=== PATIENT | male | born 1980 | race Two or more races ===

== ENCOUNTER 2021-01-17 20:57 | Inpatient (IN) | payer MEDICAID, OTHER ==
[~2021-01-17] VITALS: Ht 182.9 cm; Wt 101.9 kg
[2021-01-17] MEDS ORDERED: LIDOCAINE 2%,20 ML JEL.PF.APP MM ONE (21:16)
--- NOTE | 2021-01-17 21:53 | NUR ---
Pt to ER with severe lower abd pain. Pt used urinal and had small amounts of bloody urine. Pt states he has difficulty urinating for 3 days. Pt in room, physician at bedside. 18fr 3way suero cath placed with sterile technique. Hand washing performed. Urojet used. Suero placed without difficulty. Pt with immediate relief. 1200ml of urine drained. Suero clamped at 800mL, for 5 mins, then the rest drained. Secure device to leg. Urine bloody. Labs sent per orders. Pt to CT. Warm blanket given. Pt appears much more comfortable now with no pain. Will monitor.
[2021-01-17 21:54] LABS: BASOPHILS % (AUTO) 1 % (0-1); EOSINOPHILS % (AUTO) 4 % (1-7); LYMPHOCYTES % (AUTO) 22 % (22-44); MEAN CORPUSCULAR HEMOGLOBIN 27.1 pg (27.5-34.5); MEAN CORPUSCULAR HGB CONC 33.9 g/dL (33.2-36.2); MEAN PLATELET VOLUME 6.5 fL (7.4-10.4); MONOCYTES % (AUTO) 8 % (2-9); NEUTROPHILS % (AUTO) 65 % (42-75); PLATELET COUNT 353 x10^3/uL (130-400); RED BLOOD COUNT 4.66 x10^6/uL (4.38-5.82); RED CELL DISTRIBUTION WIDTH 15.3 % (9.4-14.8)
[2021-01-17 21:55] LABS: MD NO
[2021-01-17 22:05] LABS: ALANINE AMINOTRANSFERASE 16 U/L (12-78); ALBUMIN 3.5 g/dL (3.4-5.0); ANION GAP 10 mmol/L (5-15); CALCIUM 8.5 mg/dL (8.5-10.1); CHLORIDE 105 mmol/L (98-107); CREATININE 1.56 mg/dL (0.7-1.3)
[2021-01-17 22:08] LABS: ALKALINE PHOSPHATASE 67 U/L (45-117); BILIRUBIN,TOTAL 0.3 mg/dL (0.2-1.0); TOTAL PROTEIN 8.3 g/dL (6.4-8.2)
[2021-01-17 22:26] LABS: MICROSCOPIC INDICATED
[2021-01-17] MEDS ORDERED: CEFTRIAXONE PMX 1GM/50ML 50 ML IV ONE (23:30)
[2021-01-17] MEDS ORDERED: ONDANSETRON 2MG/ML, 2ML IVPush PRN (23:30)
[2021-01-17] MEDS ORDERED: MORPHINE SULFATE 4 MG/ML, 1ML IVPush PRN (23:30)
[2021-01-17] MEDS ORDERED: CEFTRIAXONE PMX 1GM/50ML 50 ML ONE (23:39)
[2021-01-18] VITALS (7 sets, daily range): BP systolic 138–166; BP diastolic 91–116
--- NOTE | 2021-01-18 00:08 | NUR ---
Pt with 2000ml of urine output. Urine clearing, pink tinged, no clots noted. Pt denies the need for pain medications at this time. IV placed and abx infusing. Pt denies any needs at this time will monitor.
[2021-01-18] MEDS ORDERED: DOCUSATE 100 MG CAPSULE PO PRN (01:00)
[2021-01-18] MEDS ORDERED: LACTATED RINGERS 1,000 ML IV SCH (01:00)
[2021-01-18] MEDS ORDERED: MELATONIN 5 MG TABLET PO PRN (01:00)
[2021-01-18] MEDS ORDERED: hydrALAzine 20 MG/ML, 1ML IVPush PRN (01:00)
[2021-01-18] MEDS: OXYcodone IR 5MG TABLET PO PRN ×3 (02:20→19:37)
[2021-01-18 05:33] LABS: CHLORIDE 110 mmol/L (98-107)
[2021-01-18 05:35] LABS: BASOPHILS % (AUTO) 1 % (0-1); EOSINOPHILS % (AUTO) 3 % (1-7); LYMPHOCYTES % (AUTO) 23 % (22-44); MEAN CORPUSCULAR HEMOGLOBIN 27.4 pg (27.5-34.5); MEAN CORPUSCULAR HGB CONC 33.9 g/dL (33.2-36.2); MEAN PLATELET VOLUME 6.9 fL (7.4-10.4); MONOCYTES % (AUTO) 10 % (2-9); NEUTROPHILS % (AUTO) 63 % (42-75); PLATELET COUNT 324 x10^3/uL (130-400); RED BLOOD COUNT 4.71 x10^6/uL (4.38-5.82); RED CELL DISTRIBUTION WIDTH 14.9 % (9.4-14.8)
[2021-01-18 05:36] LABS: MD NO
[2021-01-18 05:38] LABS: ANION GAP 6 mmol/L (5-15); CREATININE 1.48 mg/dL (0.7-1.3)
[2021-01-18] MEDS: SODIUM CHLORIDE 0.9% 1,000 ML IV SCH (12:36)
[2021-01-18] MEDS ORDERED: OMNIPAQUE 350 MG/ML, 50 ML BOTTLE ONE (13:59)
[2021-01-18] MEDS ORDERED: PROPOFOL 10 MG/ML, 20ML ONE (15:34)
[2021-01-18] MEDS ORDERED: CEFAZOLIN 1,000 MG ONE (15:34)
[2021-01-18] MEDS ORDERED: ONDANSETRON 2MG/ML, 2ML ONE (15:34)
[2021-01-18] MEDS ORDERED: SUCCINYLCHOLINE 20 MG/ML, 10ML ONE (15:34)
[2021-01-18] MEDS ORDERED: SUGAMMADEX 200 MG/2 ML IVPush ONE (15:34)
[2021-01-18] MEDS ORDERED: ROCURONIUM 10 MG/ML,10ML ONE (15:34)
[2021-01-18] MEDS ORDERED: MIDAZOLAM 1 MG/ML, 2ML ONE (15:36)
[2021-01-18] MEDS ORDERED: MEPERIDINE/PF 25MG/0.5ML IVPush PRN (16:30)
[2021-01-18] MEDS ORDERED: ALBUTEROL HFA 90 MCG/SPRAY INH PRN (16:30)
[2021-01-18] MEDS ORDERED: hydrALAzine 20 MG/ML, 1ML IV PRN (16:30)
[2021-01-18] MEDS ORDERED: OXYcodone 5 MG/5 ML ORAL.SOL UDC PO PRN (16:30)
[2021-01-18] MEDS ORDERED: FENTANYL PF 100 MCG/2ML IV PRN (16:30)
[2021-01-18] MEDS ORDERED: KETOROLAC 30 MG/1 ML IV PRN (16:30)
[2021-01-18] MEDS ORDERED: DIAZEPAM 5 MG/ML, 2ML IV PRN ×2 (16:30)
[2021-01-18] MEDS ORDERED: ALBUTEROL SULFATE 2.5 MG/3 ML NPPB PRN (16:30)
[2021-01-18] MEDS ORDERED: ONDANSETRON 2MG/ML, 2ML IVPush PRN (16:30)
[2021-01-18] MEDS ORDERED: PROMETHAZINE 25 MG/ML, 1ML IV PRN (16:30)
[2021-01-18] MEDS ORDERED: LABETALOL 5MG/ML, 20ML IV PRN (16:30)
[2021-01-18] MEDS ORDERED: FENTANYL PF 100 MCG/2ML ONE (16:45)
[2021-01-18] MEDS ORDERED: OXYcodone 5 MG/5 ML ORAL.SOL UDC ONE (17:08)
[2021-01-18] MEDS ORDERED: HYDROmorphone 1 MG/ML, 1ML INJ ONE (17:20)
[2021-01-18] MEDS: HYDROmorphone 1 MG/ML, 1ML INJ IV PRN ×2 (17:23→17:32)
[2021-01-18] MEDS: LABETALOL 5MG/ML, 20ML IVPush PRN (21:47)
[2021-01-18] MEDS ORDERED: CEFTRIAXONE PMX 1GM/50ML 50 ML IV SCH (23:00)
[2021-01-19] VITALS (7 sets, daily range): BP systolic 121–171; BP diastolic 76–111
[2021-01-19] MEDS ORDERED: POTASSIUM CHLORIDE 40 MEQ in LACTATED RINGERS 1,000 ML IV SCH (01:00)
[2021-01-19] MEDS: SODIUM CHLORIDE 0.9% 1,000 ML IV SCH ×2 (04:45→15:48)
[2021-01-19 08:00] LABS: ANION GAP 8 mmol/L (5-15); CALCIUM 8.2 mg/dL (8.5-10.1); CHLORIDE 106 mmol/L (98-107); CREATININE 1.55 mg/dL (0.7-1.3)
[2021-01-19] MEDS: OXYcodone IR 5MG TABLET PO PRN (08:39)
[2021-01-19] MEDS ORDERED: OMNIPAQUE 350 MG/ML, 150 ML BOTTLE ONE (09:45)
[2021-01-19] MEDS: LABETALOL 5MG/ML, 20ML IVPush PRN (20:42)
[2021-01-20] VITALS (8 sets, daily range): BP systolic 138–159; BP diastolic 88–107
[2021-01-20] MEDS: SODIUM CHLORIDE 0.9% 1,000 ML IV SCH ×3 (02:41→21:35)
[2021-01-20] MEDS: OXYcodone IR 5MG TABLET PO PRN ×2 (07:29→16:55)
[2021-01-20] MEDS: LABETALOL 5MG/ML, 20ML IVPush PRN (07:29)
[2021-01-20 08:02] LABS: ANION GAP 9 mmol/L (5-15); CALCIUM 9.1 mg/dL (8.5-10.1); CHLORIDE 108 mmol/L (98-107); CREATININE 1.42 mg/dL (0.7-1.3)
[2021-01-20] MEDS: AMLODIPINE 5 MG TABLET PO SCH (08:18)
[2021-01-21 00:10] VITALS: BP 132/75
[2021-01-21 07:25] VITALS: BP 146/90
[2021-01-21] MEDS: AMLODIPINE 5 MG TABLET PO SCH (09:46)
[2021-01-21] MEDS: SODIUM CHLORIDE 0.9% 1,000 ML IV SCH (09:47)
[2021-01-21] MEDS: OXYcodone IR 5MG TABLET PO PRN (09:56)
[2021-01-21 13:31] VITALS: BP 149/90
[2021-01-21 18:44] VITALS: BP 156/91
[2021-01-22 01:17] VITALS: BP 123/84
[2021-01-22 05:15] LABS: ANION GAP 9 mmol/L (5-15); CHLORIDE 106 mmol/L (98-107); CREATININE 1.43 mg/dL (0.7-1.3)
[2021-01-22 07:05] VITALS: BP 138/96
[2021-01-22] MEDS: AMLODIPINE 5 MG TABLET PO SCH (08:46)
[2021-01-22 13:41] VITALS: BP 152/85
[2021-01-22 19:39] VITALS: BP 143/84
[2021-01-23 00:48] VITALS: BP 128/82
[2021-01-23 04:58] LABS: BASOPHILS % (AUTO) 1 % (0-1); EOSINOPHILS % (AUTO) 9 % (1-7); LYMPHOCYTES % (AUTO) 23 % (22-44); MEAN CORPUSCULAR HGB CONC 33.7 g/dL (33.2-36.2); MEAN PLATELET VOLUME 6.4 fL (7.4-10.4); MONOCYTES % (AUTO) 7 % (2-9); NEUTROPHILS % (AUTO) 59 % (42-75); PLATELET COUNT 363 x10^3/uL (130-400); RED BLOOD COUNT 4.97 x10^6/uL (4.38-5.82); RED CELL DISTRIBUTION WIDTH 15.3 % (9.4-14.8)
[2021-01-23 05:02] LABS: ANION GAP 8 mmol/L (5-15); CALCIUM 8.9 mg/dL (8.5-10.1); CHLORIDE 107 mmol/L (98-107); CREATININE 1.59 mg/dL (0.7-1.3)
[2021-01-23 05:06] LABS: MD NO
[2021-01-23] MEDS: AMLODIPINE 5 MG TABLET PO SCH (08:28)
[2021-01-23 08:36] VITALS: BP 140/96
[2021-01-23 12:38] VITALS: BP 136/88
[2021-01-23] MEDS: LIDODERM 5% PATCH TD PRN (15:11)
[2021-01-23] MEDS: OXYcodone IR 5MG TABLET PO PRN (15:11)
[2021-01-23 19:32] VITALS: BP 158/100
[2021-01-24 00:53] VITALS: BP 126/84
[2021-01-24 06:40] LABS: ANION GAP 7 mmol/L (5-15); CALCIUM 8.7 mg/dL (8.5-10.1); CHLORIDE 106 mmol/L (98-107); CREATININE 1.49 mg/dL (0.7-1.3)
[2021-01-24] MEDS: AMLODIPINE 5 MG TABLET PO SCH (07:53)
[2021-01-24] MEDS ORDERED: LACTATED RINGERS 1,000 ML IV SCH (08:00)
[2021-01-24 08:01] VITALS: BP 132/95
[2021-01-24] MEDS: OXYcodone IR 5MG TABLET PO PRN (11:22)
[2021-01-24] MEDS: LIDODERM 5% PATCH TD PRN (11:23)
[2021-01-24 13:49] VITALS: BP 138/95
[2021-01-24 18:52] VITALS: BP 159/99
[2021-01-25 00:25] VITALS: BP 119/83
[2021-01-25 07:35] VITALS: BP 115/79
[2021-01-25] MEDS: AMLODIPINE 5 MG TABLET PO SCH (09:00)
[2021-01-25] MEDS: OXYcodone IR 5MG TABLET PO PRN ×2 (09:56→21:05)
[2021-01-25 13:11] VITALS: BP 134/88
[2021-01-25 18:51] VITALS: BP 127/80
[2021-01-26 01:05] VITALS: BP 112/71
[2021-01-26 05:08] LABS: BASOPHILS % (AUTO) 1 % (0-1); EOSINOPHILS % (AUTO) 8 % (1-7); LYMPHOCYTES % (AUTO) 31 % (22-44); MEAN CORPUSCULAR HEMOGLOBIN 27.4 pg (27.5-34.5); MEAN PLATELET VOLUME 6.8 fL (7.4-10.4); MONOCYTES % (AUTO) 9 % (2-9); NEUTROPHILS % (AUTO) 50 % (42-75); PLATELET COUNT 331 x10^3/uL (130-400); RED BLOOD COUNT 4.58 x10^6/uL (4.38-5.82); RED CELL DISTRIBUTION WIDTH 15.5 % (9.4-14.8)
[2021-01-26 05:09] LABS: MD NO
[2021-01-26 05:17] LABS: ANION GAP 6 mmol/L (5-15); CALCIUM 8.6 mg/dL (8.5-10.1); CHLORIDE 107 mmol/L (98-107); CREATININE 1.47 mg/dL (0.7-1.3)
[2021-01-26 07:07] LABS: % IRON SATURATION 10 % (20-55); IRON LEVEL 32 mcg/dL (65-175); TOTAL IRON BINDING CAPACITY 307 mcg/dL (250-450)
[2021-01-26 07:17] VITALS: BP 127/74
[2021-01-26] MEDS: AMLODIPINE 5 MG TABLET PO SCH (09:14)
[2021-01-26] MEDS ORDERED: POLYETHYLENE GLYCOL 17 GM PACKET ONE (09:17)
[2021-01-26] MEDS: POLYETHYLENE GLYCOL 17 GM PACKET PO SCH (09:20)
[2021-01-26 13:23] VITALS: BP 118/81
[2021-01-26] MEDS: FERROUS SULFATE 325 MG TABLET PO SCH (17:34)
[2021-01-26 20:00] VITALS: BP 133/88
[2021-01-26] MEDS: ARTIFICIAL TEARS 15 DROP/ML BOTTLE EACHEYE PRN (21:49)
[2021-01-27 02:00] VITALS: BP 114/79
[2021-01-27 07:08] VITALS: BP 129/79
[2021-01-27] MEDS: FERROUS SULFATE 325 MG TABLET PO SCH ×2 (09:21→16:00)
[2021-01-27] MEDS: AMLODIPINE 5 MG TABLET PO SCH (09:21)
[2021-01-27] MEDS: POLYETHYLENE GLYCOL 17 GM PACKET PO SCH (09:21)
[2021-01-27] MEDS: OXYcodone IR 5MG TABLET PO PRN ×2 (09:39→21:43)
[2021-01-27] MEDS: ARTIFICIAL TEARS 15 DROP/ML BOTTLE EACHEYE PRN (09:39)
[2021-01-27 14:03] VITALS: BP 144/91
[2021-01-27 19:12] VITALS: BP 145/71
[2021-01-28 01:49] VITALS: BP 118/75
[2021-01-28 07:23] VITALS: BP 120/77
[2021-01-28] MEDS: FERROUS SULFATE 325 MG TABLET PO SCH ×2 (09:36→15:29)
[2021-01-28] MEDS: AMLODIPINE 5 MG TABLET PO SCH (09:36)
[2021-01-28] MEDS: POLYETHYLENE GLYCOL 17 GM PACKET PO SCH (09:36)
[2021-01-28] MEDS: ARTIFICIAL TEARS 15 DROP/ML BOTTLE EACHEYE PRN (09:51)
[2021-01-28] MEDS: OXYcodone IR 5MG TABLET PO PRN (09:52)
[2021-01-28] MEDS: ACETAMINOPHEN 325 MG TABLET PO PRN (09:53)
[2021-01-28] MEDS: LIDODERM 5% PATCH TD PRN (10:57)
[2021-01-28 14:57] VITALS: BP 137/94
[2021-01-28 20:02] VITALS: BP 132/86
[2021-01-29 01:19] VITALS: BP 122/81
[2021-01-29] MEDS: AMLODIPINE 5 MG TABLET PO SCH (07:41)
[2021-01-29 07:42] VITALS: BP 119/74
[2021-01-29] MEDS: FERROUS SULFATE 325 MG TABLET PO SCH ×2 (07:42→17:39)
[2021-01-29] MEDS: POLYETHYLENE GLYCOL 17 GM PACKET PO SCH (07:42)
[2021-01-29] MEDS ORDERED: POLY17PO5 PO (08:30)
[2021-01-29] MEDS ORDERED: FERR-51 PO (08:30)
[2021-01-29] MEDS ORDERED: AMLO-150 PO (08:30)
[2021-01-29] MEDS: LIDODERM 5% PATCH TD PRN (09:02)
[2021-01-29 14:03] VITALS: BP 132/85
[2021-01-29 20:15] VITALS: BP 139/92
[2021-01-30 01:55] VITALS: BP 118/78
[2021-01-30 07:26] VITALS: BP 125/79
[2021-01-30] MEDS: FERROUS SULFATE 325 MG TABLET PO SCH ×2 (07:35→17:49)
[2021-01-30] MEDS: POLYETHYLENE GLYCOL 17 GM PACKET PO SCH (07:35)
[2021-01-30] MEDS: AMLODIPINE 5 MG TABLET PO SCH (07:35)
[2021-01-30 13:03] VITALS: BP 133/89
[2021-01-30] MEDS: LIDODERM 5% PATCH TD PRN (15:48)
[2021-01-30 18:21] VITALS: BP 142/95
[2021-01-30] MEDS: OXYcodone IR 5MG TABLET PO PRN (20:32)
[2021-01-31 01:14] VITALS: BP 112/73
[2021-01-31 07:06] VITALS: BP 124/79
[2021-01-31] MEDS: POLYETHYLENE GLYCOL 17 GM PACKET PO SCH (09:00)
[2021-01-31] MEDS: AMLODIPINE 5 MG TABLET PO SCH (09:23)
[2021-01-31] MEDS: FERROUS SULFATE 325 MG TABLET PO SCH ×2 (09:23→18:11)
[2021-01-31 12:34] VITALS: BP 128/81
[2021-01-31] MEDS: LIDODERM 5% PATCH TD PRN (18:09)
[2021-01-31 19:00] VITALS: BP 128/81
[2021-02-01 00:51] VITALS: BP 121/79
[2021-02-01 07:13] VITALS: BP 129/83
[2021-02-01] MEDS: FERROUS SULFATE 325 MG TABLET PO SCH ×2 (08:54→17:32)
[2021-02-01] MEDS: AMLODIPINE 5 MG TABLET PO SCH (08:55)
[2021-02-01] MEDS: POLYETHYLENE GLYCOL 17 GM PACKET PO SCH (08:55)
[2021-02-01] MEDS: OXYcodone IR 5MG TABLET PO PRN ×2 (09:10→19:50)
[2021-02-01 12:52] VITALS: BP 143/90
[2021-02-01 20:33] VITALS: BP 134/86
[2021-02-02 00:56] VITALS: BP 118/69
[2021-02-02 07:52] VITALS: BP 127/82
[2021-02-02] MEDS: AMLODIPINE 5 MG TABLET PO SCH (07:58)
[2021-02-02] MEDS: POLYETHYLENE GLYCOL 17 GM PACKET PO SCH (07:58)
[2021-02-02] MEDS: FERROUS SULFATE 325 MG TABLET PO SCH ×2 (07:58→16:22)
[2021-02-02 08:06] VITALS: BP 134/107
[2021-02-02 14:07] VITALS: BP 124/81
[2021-02-02 18:33] VITALS: BP 126/85
[2021-02-03 02:45] VITALS: BP 148/82
[2021-02-03 06:53] VITALS: BP 130/83
[2021-02-03] MEDS: AMLODIPINE 5 MG TABLET PO SCH (08:57)
[2021-02-03] MEDS: POLYETHYLENE GLYCOL 17 GM PACKET PO SCH (08:57)
[2021-02-03] MEDS: FERROUS SULFATE 325 MG TABLET PO SCH ×2 (08:57→16:57)
[2021-02-03] MEDS: ACETAMINOPHEN 325 MG TABLET PO PRN ×2 (08:57→21:20)
[2021-02-03 14:01] VITALS: BP 129/79
[2021-02-03 18:43] VITALS: BP 158/96
[2021-02-04 02:27] VITALS: BP 127/78
[2021-02-04 07:12] VITALS: BP 137/94
[2021-02-04] MEDS: AMLODIPINE 5 MG TABLET PO SCH (07:58)
[2021-02-04] MEDS: FERROUS SULFATE 325 MG TABLET PO SCH ×2 (07:58→16:15)
[2021-02-04] MEDS: POLYETHYLENE GLYCOL 17 GM PACKET PO SCH (07:58)
[2021-02-04 13:48] VITALS: BP 144/98
[2021-02-04 18:35] VITALS: BP 134/87
[2021-02-05 03:37] VITALS: BP 123/78
[2021-02-05 08:00] VITALS: BP 133/89
[2021-02-05] MEDS: AMLODIPINE 5 MG TABLET PO SCH (08:17)
[2021-02-05] MEDS: FERROUS SULFATE 325 MG TABLET PO SCH ×2 (08:17→18:30)
[2021-02-05] MEDS: POLYETHYLENE GLYCOL 17 GM PACKET PO SCH (08:17)
[2021-02-05] MEDS: ARTIFICIAL TEARS 15 DROP/ML BOTTLE EACHEYE PRN (08:32)
[2021-02-05 13:31] VITALS: BP 144/93
[2021-02-05] MEDS: OXYcodone IR 5MG TABLET PO PRN (18:31)
[2021-02-05 19:01] VITALS: BP 172/85
[2021-02-06 01:48] VITALS: BP 115/76
[2021-02-06 07:14] VITALS: BP 136/83
[2021-02-06] MEDS: FERROUS SULFATE 325 MG TABLET PO SCH ×2 (08:08→17:17)
[2021-02-06] MEDS: AMLODIPINE 5 MG TABLET PO SCH (08:09)
[2021-02-06] MEDS: POLYETHYLENE GLYCOL 17 GM PACKET PO SCH (08:10)
[2021-02-06 12:25] VITALS: BP 127/89
[2021-02-06 19:17] VITALS: BP_SYST 145; BP_SYST 166; BP_DIAS 101; BP_DIAS 108
[2021-02-07 01:32] VITALS: BP 121/87
[2021-02-07 05:42] LABS: BASOPHILS % (AUTO) 1 % (0-1); EOSINOPHILS % (AUTO) 8 % (1-7); LYMPHOCYTES % (AUTO) 29 % (22-44); MEAN CORPUSCULAR HEMOGLOBIN 27.4 pg (27.5-34.5); MEAN CORPUSCULAR HGB CONC 34.8 g/dL (33.2-36.2); MEAN PLATELET VOLUME 6.6 fL (7.4-10.4); MONOCYTES % (AUTO) 9 % (2-9); NEUTROPHILS % (AUTO) 52 % (42-75); PLATELET COUNT 294 x10^3/uL (130-400); RED BLOOD COUNT 4.64 x10^6/uL (4.38-5.82); RED CELL DISTRIBUTION WIDTH 15.3 % (9.4-14.8)
[2021-02-07 05:44] LABS: MD NO
[2021-02-07 05:56] LABS: CHLORIDE 106 mmol/L (98-107)
[2021-02-07 06:12] LABS: ALANINE AMINOTRANSFERASE 10 U/L (12-78); ALBUMIN 3.4 g/dL (3.4-5.0); ALKALINE PHOSPHATASE 64 U/L (45-117); ANION GAP 5 mmol/L (5-15); BILIRUBIN,TOTAL 0.3 mg/dL (0.2-1.0); CALCIUM 9.1 mg/dL (8.5-10.1); CREATININE 1.37 mg/dL (0.7-1.3); TOTAL PROTEIN 7.8 g/dL (6.4-8.2)
[2021-02-07] MEDS: FERROUS SULFATE 325 MG TABLET PO SCH ×2 (08:29→18:17)
[2021-02-07] MEDS: AMLODIPINE 5 MG TABLET PO SCH (08:29)
[2021-02-07] MEDS: POLYETHYLENE GLYCOL 17 GM PACKET PO SCH (08:30)
[2021-02-07 09:26] VITALS: BP 141/109
[2021-02-07] MEDS: ARTIFICIAL TEARS 15 DROP/ML BOTTLE EACHEYE PRN (11:26)
[2021-02-07 12:51] VITALS: BP 137/88
[2021-02-07 19:40] VITALS: BP 132/91
[2021-02-08 01:58] VITALS: BP 119/81
[2021-02-08] MEDS ORDERED: INDIGO CARMINE 0.8%, 5ML ONE (06:07)
[2021-02-08] MEDS ORDERED: FUROSEMIDE 20 MG/2 ML ONE (06:07)
[2021-02-08] MEDS ORDERED: BUPIVACAINE/PF 0.25% ONE ×2 (06:07→13:02)
[2021-02-08] MEDS ORDERED: MANNITOL PMX 20% 500 ML ONE (06:08)
[2021-02-08] MEDS ORDERED: EPINEPHRINE 1 MG/ML, 1ML ONE (06:08)
[2021-02-08] MEDS ORDERED: CEFAZOLIN 1,000 MG ONE (06:57)
[2021-02-08] MEDS ORDERED: ONDANSETRON 2MG/ML, 2ML ONE (06:57)
[2021-02-08] MEDS ORDERED: GLYCOPYRROLATE 0.2MG/1ML, 5ML ONE (06:57)
[2021-02-08] MEDS ORDERED: DEXAMETHASONE 4 MG/ML, 1ML ONE (06:57)
[2021-02-08] MEDS ORDERED: PROPOFOL 10 MG/ML, 20ML ONE (06:57)
[2021-02-08] MEDS ORDERED: MIDAZOLAM 1 MG/ML, 2ML ONE (06:57)
[2021-02-08] MEDS ORDERED: SUCCINYLCHOLINE 20 MG/ML, 10ML ONE (06:57)
[2021-02-08] MEDS ORDERED: NEOSTIGMINE 1 MG/ML, 10ML ONE (06:57)
[2021-02-08] MEDS ORDERED: ROCURONIUM 10MG/ML,5ML ONE (06:57)
[2021-02-08] MEDS ORDERED: FENTANYL PF 100 MCG/2ML ONE ×3 (06:57→13:47)
[2021-02-08] MEDS ORDERED: GEMCITABINE HCL 2,000 MG in SYRINGE 1 EA IS PRN (07:30)
[2021-02-08] MEDS ORDERED: PHENYLEPHRINE 10 MG/ML ONE (07:46)
[2021-02-08] MEDS: FERROUS SULFATE 325 MG TABLET PO SCH ×2 (08:00→17:22)
[2021-02-08] MEDS: POLYETHYLENE GLYCOL 17 GM PACKET PO SCH (09:00)
[2021-02-08] MEDS ORDERED: PROMETHAZINE 25 MG/ML, 1ML ONE (09:19)
[2021-02-08] MEDS ORDERED: ONDANSETRON 2MG/ML, 2ML IVPush PRN (09:30)
[2021-02-08] MEDS ORDERED: HYDROmorphone 1 MG/ML, 1ML INJ IVPush PRN (09:30)
[2021-02-08] MEDS ORDERED: HYDROcodone/APAP 7.5-325MG/15ML UDC PO PRN (09:30)
[2021-02-08] MEDS ORDERED: MEPERIDINE/PF 25MG/0.5ML IVPush PRN (09:30)
[2021-02-08] MEDS ORDERED: OXYcodone 5 MG/5 ML ORAL.SOL UDC PO PRN (09:30)
[2021-02-08] MEDS ORDERED: PROMETHAZINE 25 MG/ML, 1ML IVPush PRN (09:30)
[2021-02-08] MEDS ORDERED: OPIUM/BELLADONNA SUPP.RECT 16.2-60 MG ONE (11:14)
[2021-02-08] MEDS ORDERED: MEPERIDINE/PF 25MG/ML,1ML ONE (13:47)
[2021-02-08] MEDS ORDERED: OXYcodone 5 MG/5 ML ORAL.SOL UDC ONE (13:47)
[2021-02-08] MEDS: AMLODIPINE 5 MG TABLET PO SCH (14:00)
[2021-02-08] MEDS: FENTANYL PF 100 MCG/2ML IV PRN ×2 (14:14→14:25)
[2021-02-08] MEDS: OXYcodone IR 5MG TABLET PO PRN ×2 (16:31→19:41)
[2021-02-08] MEDS: ACETAMINOPHEN 500 MG TABLET PO SCH ×2 (17:22→20:59)
[2021-02-08 18:27] VITALS: BP 112/73
[2021-02-08 19:30] VITALS: BP 108/67
[2021-02-09 00:51] VITALS: BP 99/71
[2021-02-09] MEDS: ACETAMINOPHEN 500 MG TABLET PO SCH ×6 (01:29→20:22)
[2021-02-09] MEDS: OXYcodone IR 5MG TABLET PO PRN ×6 (01:29→22:44)
[2021-02-09 05:36] LABS: BASOPHILS % (AUTO) 0 % (0-1); EOSINOPHILS % (AUTO) 0 % (1-7); LYMPHOCYTES % (AUTO) 5 % (22-44); MEAN CORPUSCULAR HEMOGLOBIN 26.9 pg (27.5-34.5); MEAN CORPUSCULAR HGB CONC 33.4 g/dL (33.2-36.2); MONOCYTES % (AUTO) 7 % (2-9); NEUTROPHILS % (AUTO) 87 % (42-75); PLATELET COUNT 301 x10^3/uL (130-400); RED BLOOD COUNT 4.46 x10^6/uL (4.38-5.82); RED CELL DISTRIBUTION WIDTH 15.7 % (9.4-14.8)
[2021-02-09 05:42] LABS: ANION GAP 7 mmol/L (5-15); CALCIUM 8.7 mg/dL (8.5-10.1); CHLORIDE 107 mmol/L (98-107)
[2021-02-09 05:43] LABS: CREATININE 1.65 mg/dL (0.7-1.3)
[2021-02-09 06:00] LABS: MD SCAN
[2021-02-09 07:29] VITALS: BP 98/68
[2021-02-09] MEDS: POLYETHYLENE GLYCOL 17 GM PACKET PO SCH (09:35)
[2021-02-09] MEDS: FERROUS SULFATE 325 MG TABLET PO SCH ×2 (09:35→16:33)
[2021-02-09 09:36] VITALS: BP 99/66
[2021-02-09] MEDS: AMLODIPINE 5 MG TABLET PO SCH (09:36)
[2021-02-09 13:44] VITALS: BP 122/79
[2021-02-09] MEDS: ARTIFICIAL TEARS 15 DROP/ML BOTTLE EACHEYE PRN (16:33)
[2021-02-09 18:47] VITALS: BP 130/80
[2021-02-10] VITALS (9 sets, daily range): BP systolic 115–129; BP diastolic 75–89
[2021-02-10] MEDS: ACETAMINOPHEN 500 MG TABLET PO SCH ×6 (01:44→20:41)
[2021-02-10] MEDS: OXYcodone IR 5MG TABLET PO PRN ×4 (01:44→12:22)
[2021-02-10 05:40] LABS: BASOPHILS % (AUTO) 0 % (0-1); EOSINOPHILS % (AUTO) 1 % (1-7); LYMPHOCYTES % (AUTO) 14 % (22-44); MEAN CORPUSCULAR HEMOGLOBIN 26.8 pg (27.5-34.5); MEAN CORPUSCULAR HGB CONC 32.9 g/dL (33.2-36.2); MONOCYTES % (AUTO) 3 % (2-9); NEUTROPHILS % (AUTO) 81 % (42-75); PLATELET COUNT 262 x10^3/uL (130-400); RED BLOOD COUNT 4.23 x10^6/uL (4.38-5.82); RED CELL DISTRIBUTION WIDTH 15.8 % (9.4-14.8)
[2021-02-10 05:41] LABS: CHLORIDE 106 mmol/L (98-107)
[2021-02-10 05:47] LABS: ANION GAP 5 mmol/L (5-15); CALCIUM 8.1 mg/dL (8.5-10.1); CREATININE 1.59 mg/dL (0.7-1.3)
[2021-02-10 06:03] LABS: MD NO
[2021-02-10] MEDS ORDERED: morphine SULFATE 10 MG/ML, 1ML IVPush PRN (09:00)
[2021-02-10] MEDS: POLYETHYLENE GLYCOL 17 GM PACKET PO SCH (09:06)
[2021-02-10] MEDS: FERROUS SULFATE 325 MG TABLET PO SCH ×2 (09:09→16:47)
[2021-02-10] MEDS ORDERED: OPIUM/BELLADONNA SUPP.RECT 16.2-30 MG PR PRN (11:00)
[2021-02-10] MEDS ORDERED: LACTATED RINGERS 1,000 ML IVBOLUS ONE (12:00)
[2021-02-10] MEDS ORDERED: VANCOMYCIN PER PHARMACY MC PRN (12:00)
[2021-02-10] MEDS ORDERED: PHARMACOKINETIC MONITORING MC PRN (12:00)
[2021-02-10] MEDS ORDERED: PHARMACOKINETIC CONSULTATION MC ONE (12:00)
[2021-02-10] MEDS ORDERED: VANCOMYCIN 2,400 MG in SODIUM CHLORIDE 0.9% 500 ML IV ONE (12:00)
[2021-02-10] MEDS: PIPERACILLIN/TAZO/PMX 3.375GM 50 ML IV SCH ×2 (12:44→20:41)
[2021-02-10 13:19] LABS: MICROSCOPIC AUTO
[2021-02-10] MEDS: LACTATED RINGERS 1,000 ML IV SCH (15:42)
[2021-02-10] MEDS: OXYBUTYNIN CHLORIDE 5 MG TABLET PO SCH ×2 (16:48→20:41)
[2021-02-11] MEDS: ACETAMINOPHEN 500 MG TABLET PO SCH ×7 (01:31→21:30)
[2021-02-11] MEDS: OXYcodone IR 5MG TABLET PO PRN ×4 (01:31→20:19)
[2021-02-11 01:33] VITALS: BP 136/85
[2021-02-11] MEDS: LACTATED RINGERS 1,000 ML IV SCH ×3 (01:34→20:25)
[2021-02-11] MEDS: PIPERACILLIN/TAZO/PMX 3.375GM 50 ML IV SCH ×3 (04:04→20:19)
[2021-02-11 05:18] LABS: BASOPHILS % (AUTO) 1 % (0-1); EOSINOPHILS % (AUTO) 5 % (1-7); LYMPHOCYTES % (AUTO) 15 % (22-44); MEAN CORPUSCULAR HEMOGLOBIN 27.6 pg (27.5-34.5); MEAN CORPUSCULAR HGB CONC 33.8 g/dL (33.2-36.2); MEAN PLATELET VOLUME 6.7 fL (7.4-10.4); MONOCYTES % (AUTO) 3 % (2-9); NEUTROPHILS % (AUTO) 76 % (42-75); PLATELET COUNT 241 x10^3/uL (130-400); RED BLOOD COUNT 3.82 x10^6/uL (4.38-5.82); RED CELL DISTRIBUTION WIDTH 15.8 % (9.4-14.8)
[2021-02-11 05:21] LABS: MD NO
[2021-02-11 05:30] LABS: ANION GAP 5 mmol/L (5-15); CALCIUM 8.3 mg/dL (8.5-10.1); CHLORIDE 107 mmol/L (98-107); CREATININE 1.54 mg/dL (0.7-1.3)
[2021-02-11] MEDS: VANCOMYCIN 1,700 MG in SODIUM CHLORIDE 0.9% 250 ML IV SCH (06:40)
[2021-02-11 08:01] VITALS: BP 120/76
[2021-02-11] MEDS: FERROUS SULFATE 325 MG TABLET PO SCH ×2 (09:28→17:33)
[2021-02-11] MEDS: AMLODIPINE 5 MG TABLET PO SCH (09:29)
[2021-02-11] MEDS: POLYETHYLENE GLYCOL 17 GM PACKET PO SCH (09:29)
[2021-02-11] MEDS: OXYBUTYNIN CHLORIDE 5 MG TABLET PO SCH ×3 (09:29→20:20)
[2021-02-11 13:33] VITALS: BP 128/84
[2021-02-11 18:32] VITALS: BP 150/99
[2021-02-12] MEDS: VANCOMYCIN 1,700 MG in SODIUM CHLORIDE 0.9% 250 ML IV SCH (01:12)
[2021-02-12] MEDS: ACETAMINOPHEN 500 MG TABLET PO SCH ×6 (01:12→21:08)
[2021-02-12 01:18] VITALS: BP 134/78
[2021-02-12] MEDS: OXYcodone IR 5MG TABLET PO PRN ×4 (01:29→21:08)
[2021-02-12] MEDS: PIPERACILLIN/TAZO/PMX 3.375GM 50 ML IV SCH ×3 (04:08→20:15)
[2021-02-12 05:15] LABS: BASOPHILS % (AUTO) 1 % (0-1); EOSINOPHILS % (AUTO) 9 % (1-7); LYMPHOCYTES % (AUTO) 24 % (22-44); MEAN CORPUSCULAR HEMOGLOBIN 27.3 pg (27.5-34.5); MEAN CORPUSCULAR HGB CONC 33.8 g/dL (33.2-36.2); MEAN PLATELET VOLUME 6.3 fL (7.4-10.4); MONOCYTES % (AUTO) 3 % (2-9); NEUTROPHILS % (AUTO) 63 % (42-75); PLATELET COUNT 260 x10^3/uL (130-400); RED BLOOD COUNT 3.89 x10^6/uL (4.38-5.82); RED CELL DISTRIBUTION WIDTH 15.8 % (9.4-14.8)
[2021-02-12 05:17] LABS: MD NO
[2021-02-12 05:27] LABS: CHLORIDE 106 mmol/L (98-107)
[2021-02-12 05:33] LABS: ANION GAP 6 mmol/L (5-15); CALCIUM 8.6 mg/dL (8.5-10.1); CREATININE 1.64 mg/dL (0.7-1.3)
[2021-02-12 07:29] VITALS: BP 145/91
[2021-02-12] MEDS: OXYBUTYNIN CHLORIDE 5 MG TABLET PO SCH ×3 (07:47→21:07)
[2021-02-12] MEDS: POLYETHYLENE GLYCOL 17 GM PACKET PO SCH (07:47)
[2021-02-12] MEDS: AMLODIPINE 5 MG TABLET PO SCH (07:48)
[2021-02-12] MEDS: FERROUS SULFATE 325 MG TABLET PO SCH ×2 (07:48→17:43)
[2021-02-12] MEDS: LACTATED RINGERS 1,000 ML IV SCH ×2 (09:00→23:35)
[2021-02-12 14:00] VITALS: BP 132/90
[2021-02-12 19:44] VITALS: BP 142/98
[2021-02-12] MEDS ORDERED: VANCOMYCIN 1,700 MG in SODIUM CHLORIDE 0.9% 250 ML IV SCH (23:00)
[2021-02-13 00:48] VITALS: BP 132/89
[2021-02-13] MEDS: PIPERACILLIN/TAZO/PMX 3.375GM 50 ML IV SCH ×3 (04:14→20:44)
[2021-02-13] MEDS: ACETAMINOPHEN 500 MG TABLET PO SCH ×5 (04:15→20:44)
[2021-02-13 04:39] LABS: BASOPHILS % (AUTO) 1 % (0-1); EOSINOPHILS % (AUTO) 8 % (1-7); LYMPHOCYTES % (AUTO) 26 % (22-44); MEAN CORPUSCULAR HEMOGLOBIN 27.5 pg (27.5-34.5); MEAN CORPUSCULAR HGB CONC 34.5 g/dL (33.2-36.2); MEAN PLATELET VOLUME 6.2 fL (7.4-10.4); MONOCYTES % (AUTO) 6 % (2-9); NEUTROPHILS % (AUTO) 59 % (42-75); PLATELET COUNT 274 x10^3/uL (130-400); RED BLOOD COUNT 4.11 x10^6/uL (4.38-5.82); RED CELL DISTRIBUTION WIDTH 15.5 % (9.4-14.8)
[2021-02-13 04:40] LABS: MD NO
[2021-02-13 04:51] LABS: ANION GAP 3 mmol/L (5-15); CALCIUM 8.9 mg/dL (8.5-10.1); CHLORIDE 105 mmol/L (98-107); CREATININE 1.58 mg/dL (0.7-1.3)
[2021-02-13 07:14] VITALS: BP 128/85
[2021-02-13] MEDS: OXYBUTYNIN CHLORIDE 5 MG TABLET PO SCH ×3 (08:03→20:44)
[2021-02-13] MEDS: AMLODIPINE 5 MG TABLET PO SCH (08:03)
[2021-02-13] MEDS: POLYETHYLENE GLYCOL 17 GM PACKET PO SCH (08:03)
[2021-02-13] MEDS: FERROUS SULFATE 325 MG TABLET PO SCH ×2 (08:03→17:13)
[2021-02-13] MEDS: LACTATED RINGERS 1,000 ML IV SCH (13:05)
[2021-02-13 13:32] VITALS: BP 130/89
[2021-02-13 18:26] VITALS: BP 134/85
[2021-02-14] MEDS: LACTATED RINGERS 1,000 ML IV SCH ×2 (00:31→09:32)
[2021-02-14] MEDS: ACETAMINOPHEN 500 MG TABLET PO SCH ×6 (00:35→20:48)
[2021-02-14 00:48] VITALS: BP 137/96
[2021-02-14] MEDS: PIPERACILLIN/TAZO/PMX 3.375GM 50 ML IV SCH ×3 (04:17→20:57)
[2021-02-14 07:17] VITALS: BP 145/94
[2021-02-14] MEDS: OXYBUTYNIN CHLORIDE 5 MG TABLET PO SCH ×3 (08:20→20:48)
[2021-02-14] MEDS: FERROUS SULFATE 325 MG TABLET PO SCH ×2 (08:20→17:06)
[2021-02-14] MEDS: AMLODIPINE 5 MG TABLET PO SCH (08:21)
[2021-02-14] MEDS: POLYETHYLENE GLYCOL 17 GM PACKET PO SCH (08:21)
[2021-02-14 13:34] VITALS: BP 137/94
[2021-02-14] MEDS: LIDODERM 5% PATCH TD PRN (15:01)
[2021-02-14 20:11] VITALS: BP 147/94
[2021-02-15] MEDS: ACETAMINOPHEN 500 MG TABLET PO SCH ×4 (01:18→13:01)
[2021-02-15 01:20] VITALS: BP 137/88
[2021-02-15] MEDS: PIPERACILLIN/TAZO/PMX 3.375GM 50 ML IV SCH ×2 (04:53→13:01)
[2021-02-15 05:13] LABS: BASOPHILS % (AUTO) 1 % (0-1); EOSINOPHILS % (AUTO) 10 % (1-7); LYMPHOCYTES % (AUTO) 26 % (22-44); MEAN CORPUSCULAR HEMOGLOBIN 27.6 pg (27.5-34.5); MEAN CORPUSCULAR HGB CONC 33.9 g/dL (33.2-36.2); MEAN PLATELET VOLUME 6.2 fL (7.4-10.4); MONOCYTES % (AUTO) 9 % (2-9); NEUTROPHILS % (AUTO) 54 % (42-75); PLATELET COUNT 289 x10^3/uL (130-400); RED BLOOD COUNT 4.38 x10^6/uL (4.38-5.82); RED CELL DISTRIBUTION WIDTH 15.8 % (9.4-14.8)
[2021-02-15 05:18] LABS: MD NO
[2021-02-15 05:26] LABS: CALCIUM 8.8 mg/dL (8.5-10.1); CHLORIDE 109 mmol/L (98-107)
[2021-02-15 05:33] LABS: ALANINE AMINOTRANSFERASE 28 U/L (12-78); ALBUMIN 2.9 g/dL (3.4-5.0); ALKALINE PHOSPHATASE 132 U/L (45-117); ANION GAP 8 mmol/L (5-15); BILIRUBIN,TOTAL 0.3 mg/dL (0.2-1.0); CREATININE 1.63 mg/dL (0.7-1.3); TOTAL PROTEIN 7.9 g/dL (6.4-8.2)
[2021-02-15 07:54] VITALS: BP 139/85
[2021-02-15] MEDS: FERROUS SULFATE 325 MG TABLET PO SCH (09:02)
[2021-02-15] MEDS: AMLODIPINE 5 MG TABLET PO SCH (09:02)
[2021-02-15] MEDS: OXYBUTYNIN CHLORIDE 5 MG TABLET PO SCH (09:02)
[2021-02-15] MEDS: POLYETHYLENE GLYCOL 17 GM PACKET PO SCH (09:03)
[2021-02-15 12:06] VITALS: BP 123/85
== END 2021-02-15 13:43 | disposition home or self-care (01) | DRG 442 ==
LOC: ED 23:15 → EDIP 23:39 → 3N 01-18 01:41 → 4NW 01-30 11:27 → DCLOUNGE 02-15 13:20
PROVIDERS: ADMIT Family Medicine; ATTEND Hospitalist
PROC: 0T9B70Z Drainage of Bladder with Drainage Device, Via Natural or Artificial Opening (ICD-10-PCS; 2021-01-17)
PROC: BT1D1ZZ Fluoroscopy of Right Kidney, Ureter and Bladder using Low Osmolar Contrast (ICD-10-PCS; 2021-01-18)
PROC: 0TB38ZX Excision of Right Kidney Pelvis, Via Natural or Artificial Opening Endoscopic, Diagnostic (ICD-10-PCS; 2021-01-18)
PROC: 0TCB8ZZ Extirpation of Matter from Bladder, Via Natural or Artificial Opening Endoscopic (ICD-10-PCS; 2021-01-18)
PROC: 0T768DZ Dilation of Right Ureter with Intraluminal Device, Via Natural or Artificial Opening Endoscopic (ICD-10-PCS; principal; 2021-01-18 15:00)
PROC: 0TP98DZ Removal of Intraluminal Device from Ureter, Via Natural or Artificial Opening Endoscopic (ICD-10-PCS; 2021-02-08)
PROC: 0WBH4ZX Excision of Retroperitoneum, Percutaneous Endoscopic Approach, Diagnostic (ICD-10-PCS; 2021-02-08)
PROC: 07BD4ZX Excision of Aortic Lymphatic, Percutaneous Endoscopic Approach, Diagnostic (ICD-10-PCS; 2021-02-08)
PROC: 0TT04ZZ Resection of Right Kidney, Percutaneous Endoscopic Approach (ICD-10-PCS; 2021-02-08)
PROC: 0TB64ZZ Excision of Right Ureter, Percutaneous Endoscopic Approach (ICD-10-PCS; 2021-02-08)
PROC: 8E0W4CZ Robotic Assisted Procedure of Trunk Region, Percutaneous Endoscopic Approach (ICD-10-PCS; 2021-02-08)
DX: C65.1 Malignant neoplasm of right renal pelvis (principal); A41.9 Sepsis, unspecified organism; D50.9 Iron deficiency anemia, unspecified; D62 Acute posthemorrhagic anemia; E87.6 Hypokalemia; I10 Essential (primary) hypertension; I16.0 Hypertensive urgency; K66.8 Other specified disorders of peritoneum; N13.6 Pyonephrosis; N17.0 Acute kidney failure with tubular necrosis; Z90.5 Acquired absence of kidney; N32.89 Other specified disorders of bladder; R59.0 Localized enlarged lymph nodes; N30.01 Acute cystitis with hematuria; Z20.822 Contact with and (suspected) exposure to COVID-19
CPT/HCPCS: 36415; 51600; 51702; 71045; 71260; 74176; 74177; 74420; 74430; 78306; 80048; 80053; 80202; 81001; 83540; 83550; 83605; 83690; 83735; 84100; 85025; 86850; 86900; 86923; 87040; 87070; 87081; 87086; 87205; 87635; 88305; 88307; 88342; 96374; 99291; C1729; G0378; J0171; J0690; J0696; J1100; J1170; J2175; J2250; J2405; J2543; J2704; J2710; J3010; J3370; J3480; J9201; Q9967; A9503; C1758; C1760; C1769; C2617; J0330; J0360; J1940; J2270; J2370; J7030; J7040; J7050; J7120; Q9958